=== PATIENT | male | born 1980 | race Caucasian/White ===

== ENCOUNTER 2024-08-13 18:40 | Emergency (ER) | payer MEDICAID, OTHER ==
[~2024-08-13] VITALS: Ht 175.3 cm; Wt 78.0 kg
[2024-08-13] MEDS: LORAZEPAM 2MG/ML INJ IM ONE (19:39)
[2024-08-13] MEDS: DIPHENHYDRAMINE 50MG/ML VIAL IM PRN (19:40)
[2024-08-13] MEDS: HALOPERIDOL LACTATE 5MG/ML VIAL IM ONE (19:40)
[2024-08-13 20:30] VITALS: TEMP 37.00296
[2024-08-13 20:58] LABS: BASOPHILS % 0.6 % (0.0-2.0); EOSINOPHILS % 1.3 % (0.0-5.0); HEMATOCRIT. 43.1 % (42.0-52.0); HEMOGLOBIN. 14.1 g/dL (14.0-18.0); LYMPHOCYTES % 15.7 % (20.0-50.0); MEAN CORPUSCULAR HEMOGLOBIN 29.1 pg (28.0-32.0); MEAN CORPUSCULAR HGB CONC 32.8 g/dL (31.0-37.0); MEAN CORPUSCULAR VOLUME 88.7 fL (80.0-94.0); MEAN PLATELET VOLUME 7.9 fl (7.4-10.4); MONOCYTES % 5.1 % (2.0-8.0); NEUTROPHILS % 77.3 % (40.0-76.0); PLATELET 297 x1000/uL (130-400); RED BLOOD CELL COUNT 4.85 mill/uL (4.7-6.1); RED CELL DISTRIBUTION WIDTH 18.8 % (11.6-14.6); WHITE BLOOD COUNT 13.2 x1000/uL (4.5-11.0)
[2024-08-13 21:02] LABS: CHLORIDE 112 mEq/L (98-107); SODIUM 145 mEq/L (136-145)
[2024-08-13 21:03] LABS: CALCIUM 8.9 mg/dL (8.7-10.4); CARBON DIOXIDE 23 mEq/L (21-32)
[2024-08-13 21:08] LABS: CREATININE 1.2 mg/dL (0.6-1.3); GLUCOSE 94 mg/dL (70-105); UREA NITROGEN BLOOD 14 mg/dL (9-23)
[2024-08-13 21:10] LABS: TROPONIN I HIGH SENSITIVITY < 4 ng/L (3.0-53)
[2024-08-13 23:29] LABS: TROPONIN I HIGH SENSITIVITY 4 ng/L (3.0-53)
[2024-08-14] MEDS: ZIPRASIDONE MESYLATE 20MG/VIAL IM ONE (00:58)
[2024-08-14 01:00] VITALS: O2SAT 95
[2024-08-14 01:30] VITALS: BP 129/66; PULSE 67; RESP 14; O2SAT 96
== END 2024-08-14 02:35 ==
LOC: EDBD 18:40 → ER 18:40
DX: R45.1 Restlessness and agitation (principal); R51.9 Headache, unspecified
CPT/HCPCS: 80048; 83880; 85025; 84484; 36415; 96372 ×2; 99285; 70450; J1200; J1630; J2060; Z7610 ×4; J3486